=== PATIENT | female | born 1960 | race Caucasian/White ===

== ENCOUNTER → 2016-11-01 | Outpatient (CLI) | payer BC | LOC: MC.RAD 10-19 13:00 | DX: Z12.31 Encounter for screening mammogram for malignant neoplasm of breast (principal) ==

== ENCOUNTER → 2017-11-03 | Outpatient (CLI) | payer BC | LOC: MC.RAD 11:13 | DX: Z12.31 Encounter for screening mammogram for malignant neoplasm of breast (principal) ==

== ENCOUNTER → 2018-10-29 | Outpatient (CLI) | payer BC | LOC: MC.RAD 09:14 | DX: Z12.31 Encounter for screening mammogram for malignant neoplasm of breast (principal) ==

== ENCOUNTER → 2019-11-28 | Outpatient (CLI) | payer BC | LOC: MC.RAD 11-06 11:15 | DX: Z12.31 Encounter for screening mammogram for malignant neoplasm of breast (principal) ==

== ENCOUNTER → 2020-10-09 | Outpatient (CLI) | payer BC | LOC: MC.RAD 08:09 | DX: Z12.31 Encounter for screening mammogram for malignant neoplasm of breast (principal) ==

== ENCOUNTER → 2021-10-12 | Outpatient (CLI) | payer BC | LOC: MC.RAD 08:08 | DX: Z12.31 Encounter for screening mammogram for malignant neoplasm of breast (principal) ==